=== PATIENT | male | born 1950 | race Two or more races ===

== ENCOUNTER 2020-01-08 15:30 | Outpatient (CLI) | payer OTHER | END 2020-01-08 23:59 | disposition home or self-care (01) | LOC: MSC 15:30 | PROVIDERS: ATTEND Internal Medicine | DX: N40.0 Benign prostatic hyperplasia without lower urinary tract symptoms (principal); R97.20 Elevated prostate specific antigen [PSA]; E78.5 Hyperlipidemia, unspecified; E55.9 Vitamin D deficiency, unspecified; B35.1 Tinea unguium ==

== ENCOUNTER 2020-04-08 15:16 | Outpatient (CLI) | payer OTHER | END 2020-04-08 23:59 | disposition home or self-care (01) | LOC: MSC 15:16 | PROVIDERS: ATTEND Internal Medicine | DX: B35.1 Tinea unguium (principal); E55.9 Vitamin D deficiency, unspecified; E78.5 Hyperlipidemia, unspecified; R97.20 Elevated prostate specific antigen [PSA] ==

== ENCOUNTER 2020-10-14 15:29 | Outpatient (CLI) | payer OTHER | END 2020-10-14 23:59 | disposition home or self-care (01) | LOC: MSC 15:29 | PROVIDERS: ATTEND Internal Medicine | DX: I10 Essential (primary) hypertension (principal); E55.9 Vitamin D deficiency, unspecified; B35.1 Tinea unguium; E78.5 Hyperlipidemia, unspecified; R97.20 Elevated prostate specific antigen [PSA]; R63.5 Abnormal weight gain ==

== ENCOUNTER → 2021-01-01 | Outpatient (CLI) | payer OTHER | END | disposition home or self-care (01) | LOC: MSC 15:30 | PROVIDERS: ATTEND Internal Medicine | DX: M85.88 Other specified disorders of bone density and structure, other site (principal); I10 Essential (primary) hypertension; B35.1 Tinea unguium; E78.5 Hyperlipidemia, unspecified; R97.20 Elevated prostate specific antigen [PSA]; E55.9 Vitamin D deficiency, unspecified ==